=== PATIENT | female | born 1940 | race Caucasian/White ===

== ENCOUNTER 2024-05-14 11:36 | Inpatient (IN) | payer MEDICARE, OTHER ==
[2024-05-14] VITALS: BP 123/61; PULSE 67; RESP 16; TEMP 97.3; O2SAT 100
[~2024-05-14] VITALS: Ht 172.7 cm; Wt 93.9 kg
[2024-05-14 11:40] VITALS: TEMP 98
[2024-05-14 12:30] LABS: BASOPHILS % 0.4 % (0.0-1.0); EOSINOPHILS # (AUTO) 0.1 (0.0-0.4); HEMATOCRIT 49.8 % (34.2-44.1); HEMOGLOBIN 15.5 g/dL (12.0-16.0); LYMPHOCYTES # (AUTO) 1.1 (1.0-3.2); LYMPHOCYTES % 12.6 % (18.0-39.1); MEAN CORPUSCULAR HEMOGLOBIN 28.7 pg (28-32); MEAN CORPUSCULAR HGB CONC 31.1 g/dL (31-35); MEAN CORPUSCULAR VOLUME 92.1 fL (81-99); MONOCYTES # (AUTO) 0.9 (0.2-0.8); MONOCYTES % 10.6 % (4.4-11.3); NEUTROPHILS # (AUTO) 6.3 (2.1-6.9); PLATELET COUNT 145 x10e3/uL (140-360); RED BLOOD COUNT 5.41 x10e6/uL (3.6-5.1); RED CELL DISTRIBUTION WIDTH 13.5 % (11.7-14.4); WHITE BLOOD COUNT 8.32 x10e3/uL (4.8-10.8)
[2024-05-14 12:47] LABS: INR 2.07; PROTHROMBIN TIME 24.3 seconds (11.9-14.5)
[2024-05-14 12:48] LABS: PARTIAL THROMBOPLASTIN TIME 41.2 seconds (23.8-35.5)
[2024-05-14 12:57] LABS: ALBUMIN 4.1 g/dL (3.5-5.0); ALBUMIN/GLOBULIN RATIO 1.1 (0.8-2.0); ANION GAP 17.5 mmol/L (8-16); BILIRUBIN,TOTAL 0.9 mg/dL (0.2-1.2); CALCIUM 10.1 mg/dL (8.4-10.2); CREATININE, SERUM 1.49 mg/dL (0.57-1.11); MAGNESIUM 1.9 MG/DL (1.3-2.1); POTASSIUM 4.5 mmol/L (3.5-5.1); TOTAL PROTEIN 7.8 g/dL (6.5-8.1)
[2024-05-14 13:07] LABS: TROPONIN I 0.023 ng/mL (0-0.300)
[2024-05-14] MEDS ORDERED: Morphine 2mg Syringe 2 MG/ML SYR IV PRN (13:15)
[2024-05-14] MEDS: SODIUM CHLORIDE 0.9% 1000ML 1,000 ML IV ONE (14:00)
[2024-05-14] MEDS: ONDANSETRON HCL INJ 2MG/ML 2ML 2 MG/ML VIAL IV STA (14:01)
[2024-05-14] MEDS: Morphine 2mg Syringe 2 MG/ML SYR IV STA (14:02)
[2024-05-14] MEDS ORDERED: HYDRALAZINE HCL 20 MG/ML VIAL IV PRN (14:45)
[2024-05-14] MEDS ORDERED: ACETAMINOPHEN 325 MG TAB PO PRN (14:45)
[2024-05-14] MEDS ORDERED: GUAIFENESIN/DEXTROMETHORPHAN LIQD 5 ML UDC PO PRN (14:45)
[2024-05-14] MEDS ORDERED: MELATONIN 3 MG TAB PO PRN (14:45)
[2024-05-14] MEDS ORDERED: MAGNESIUM/ALUMINUM/SIMETHICONE 30 ML UDC PO PRN (14:45)
[2024-05-14] MEDS ORDERED: DEXTROSE 50% SYRINGE 50 ML IV PRN (14:45)
[2024-05-14] MEDS: Vancomycin IV 1 GM in SODIUM CHLORIDE 0.9% 250ML 250 ML IV ONE (16:26)
[2024-05-14] MEDS ORDERED: SODIUM CHLORIDE 0.9% 250ML 250 ML ONE (16:28)
[2024-05-14] MEDS ORDERED: Vancomycin IV 1 GM VIAL ONE (16:28)
[2024-05-14] MEDS: INSULIN REGULAR, HUMAN 100 UNIT/1 ML SQ SCH (16:30)
[2024-05-14] MEDS: ENOXAPARIN SOD INJ 40 MG/0.4 ML SYR SC SCH (16:31)
[2024-05-14 17:40] LABS: CLARITY,URINE CLEAR (CLEAR); COLOR,URINE YELLOW (YELLOW); LEUKOCYTE ESTERASE ,URINE NEGATIVE (NEGATIVE); NITRITE,URINE NEGATIVE (NEGATIVE); PH,URINE 5.5 (5 - 7); PROTEIN,URINE DIPSTICK NEGATIVE (NEGATIVE)
[2024-05-14 17:41] LABS: BILIRUBIN,URINE NEGATIVE (NEGATIVE); GLUCOSE, URINE 500 (NEGATIVE); KETONES,URINE NEGATIVE (NEGATIVE); URINE UROBILINOGEN 0.2 mg/dL (0.2 - 1)
[2024-05-14 18:07] LABS: BACTERIA,URINE FEW /HPF; EPITHELIAL CELLS,URINE FEW /LPF; RBC,URINE 0-5 /HPF (0-5); RENAL EPITHELIAL CELLS,URINE FEW
[2024-05-14 20:31] VITALS: PULSE 73; RESP 16
[2024-05-14 21:00] VITALS: BP 132/74; PULSE 86; RESP 16; TEMP 98.7; O2SAT 98
[2024-05-14] MEDS ORDERED: FUROSEMIDE20 MG PO (23:28)
[2024-05-14] MEDS ORDERED: NYSTATIN15 G2 TOP (23:28)
[2024-05-14] MEDS ORDERED: BISOPROLOL FUMAR5 MG PO (23:28)
[2024-05-14] MEDS ORDERED: ROSUVASTATIN CAL5 MG PO (23:28)
[2024-05-14] MEDS ORDERED: ISOSORBIDE MONO30 MG PO (23:28)
[2024-05-14] MEDS ORDERED: TIZANIDINE HCL2 MG PO (23:28)
[2024-05-14] MEDS ORDERED: NITROGLYCERIN0.4 MG SL (23:28)
[2024-05-14] MEDS ORDERED: MAGNESIUM OXID400 MG PO (23:28)
[2024-05-14] MEDS ORDERED: TRELEGY ELLIPT1 EAC1 INH (23:28)
[2024-05-14] MEDS ORDERED: LORATADINE10 MG PO (23:28)
[2024-05-14] MEDS ORDERED: ONDANSETRON2 MG/1 ML PO (23:28)
[2024-05-14] MEDS ORDERED: EZETIMIBE10 MG PO (23:28)
[2024-05-14] MEDS ORDERED: WARFARIN SODIUM5 MG PO (23:28)
[2024-05-14] MEDS ORDERED: CENTRUM ADULTS1 EACH PO (23:28)
[2024-05-14] MEDS ORDERED: OZEMPIC2 MG/0.75 SQ (23:28)
[2024-05-14] MEDS ORDERED: JARDIANCE10 MG PO (23:28)
[2024-05-14] MEDS ORDERED: ONDANSETRON HCL4 MG PO (23:33)
[2024-05-15] VITALS (9 sets, daily range): BP systolic 123–139; BP diastolic 61–78; PULSE 59–74; RESP 16–18; TEMP 97.3–98.4; O2SAT 96–100
[2024-05-15] MEDS: ONDANSETRON HCL INJ 2MG/ML 2ML 2 MG/ML VIAL IV PRN (03:08)
[2024-05-15] MEDS: Morphine 2mg Syringe 2 MG/ML SYR IV PRN (03:08)
[2024-05-15 05:30] LABS: BASOPHILS % 0.5 % (0.0-1.0); EOSINOPHILS # (AUTO) 0.1 (0.0-0.4); EOSINOPHILS % 1.8 % (0.0-6.0); HEMATOCRIT 44.2 % (34.2-44.1); HEMOGLOBIN 13.4 g/dL (12.0-16.0); LYMPHOCYTES # (AUTO) 1.5 (1.0-3.2); LYMPHOCYTES % 23.1 % (18.0-39.1); MEAN CORPUSCULAR HEMOGLOBIN 28.9 pg (28-32); MEAN CORPUSCULAR HGB CONC 30.3 g/dL (31-35); MEAN CORPUSCULAR VOLUME 95.5 fL (81-99); MONOCYTES # (AUTO) 0.8 (0.2-0.8); MONOCYTES % 12.5 % (4.4-11.3); NEUTROPHILS # (AUTO) 4.1 (2.1-6.9); NEUTROPHILS % 61.8 % (38.7-80.0); PLATELET COUNT 102 x10e3/uL (140-360); RED BLOOD COUNT 4.63 x10e6/uL (3.6-5.1); RED CELL DISTRIBUTION WIDTH 13.5 % (11.7-14.4); WHITE BLOOD COUNT 6.55 x10e3/uL (4.8-10.8)
[2024-05-15 05:53] LABS: ALBUMIN 3.2 g/dL (3.5-5.0); ALBUMIN/GLOBULIN RATIO 1.1 (0.8-2.0); ANION GAP 13.2 mmol/L (8-16); BILIRUBIN,TOTAL 0.6 mg/dL (0.2-1.2); CALCIUM 8.8 mg/dL (8.4-10.2); CREATININE, SERUM 1.47 mg/dL (0.57-1.11); POTASSIUM 4.2 mmol/L (3.5-5.1); TOTAL PROTEIN 6.2 g/dL (6.5-8.1)
[2024-05-15] MEDS: MULTIVITAMINS/MINERALS TAB PO SCH (09:32)
[2024-05-15] MEDS: SODIUM CHLORIDE 0.9% 1000ML 1,000 ML ONE (09:32)
[2024-05-15] MEDS: POLYETHYLENE GLYCOL 3350 17 GM PACK PO PRN (11:47)
[2024-05-15] MEDS: HYDROCODONE/APAP 5MG-325MG TAB PO PRN (13:46)
[2024-05-15] MEDS: Vancomycin IV 1 GM in SODIUM CHLORIDE 0.9% 250ML 250 ML IV SCH (17:08)
[2024-05-15] MEDS ORDERED: EZETIMIBE 10 MG TAB PO ONE (21:15)
[2024-05-15] MEDS: ISOSORBIDE MONONITRATE 30 MG TAB CR PO ONE (21:47)
[2024-05-15] MEDS: BISOPROLOL FUMARATE 10 MG TAB PO ONE (21:48)
[2024-05-15] MEDS: WARFARIN SOD 5 MG TAB PO ONE (21:49)
[2024-05-16] VITALS (7 sets, daily range): BP systolic 124–146; BP diastolic 59–73; PULSE 60–67; RESP 16–19; TEMP 97.3–98.4; O2SAT 97–100
[2024-05-16 06:10] LABS: INR 1.49; PROTHROMBIN TIME 18.8 seconds (11.9-14.5)
[2024-05-16 06:16] LABS: ALBUMIN 2.9 g/dL (3.5-5.0); ANION GAP 11.2 mmol/L (8-16); BILIRUBIN,TOTAL 0.6 mg/dL (0.2-1.2); CALCIUM 8.6 mg/dL (8.4-10.2); CREATININE, SERUM 1.25 mg/dL (0.57-1.11); POTASSIUM 4.2 mmol/L (3.5-5.1); TOTAL PROTEIN 5.7 g/dL (6.5-8.1)
[2024-05-16] MEDS: LORATADINE 10 MG TAB PO SCH (09:00)
[2024-05-16] MEDS: ISOSORBIDE MONONITRATE 30 MG TAB CR PO SCH ×2 (09:00→21:57)
[2024-05-16] MEDS: CRESTOR 10MG PO SCH (10:14)
[2024-05-16] MEDS: FUROSEMIDE 20 MG TAB PO SCH (10:15)
[2024-05-16] MEDS: MAGNESIUM OXIDE 400 MG TAB PO SCH (10:15)
[2024-05-16] MEDS: BISOPROLOL FUMARATE 10 MG TAB PO SCH (10:17)
[2024-05-16] MEDS: EZETIMIBE 10 MG TAB PO SCH (10:19)
[2024-05-16] MEDS ORDERED: LORATADINE 10 MG TAB PO PRN (13:00)
[2024-05-16] MEDS: DOCUSATE SODIUM 100 MG CAP PO SCH (14:30)
[2024-05-16] MEDS: WARFARIN SOD 5 MG TAB PO SCH (17:11)
[2024-05-17] VITALS (8 sets, daily range): BP systolic 111–125; BP diastolic 50–72; PULSE 60–67; RESP 16–18; TEMP 97.5–98.4; O2SAT 97–100
[2024-05-17 07:39] LABS: HEMATOCRIT 42.4 % (34.2-44.1); HEMOGLOBIN 12.9 g/dL (12.0-16.0); MEAN CORPUSCULAR HEMOGLOBIN 28.7 pg (28-32); MEAN CORPUSCULAR HGB CONC 30.4 g/dL (31-35); MEAN CORPUSCULAR VOLUME 94.4 fL (81-99); PLATELET COUNT 142 x10e3/uL (140-360); RED BLOOD COUNT 4.49 x10e6/uL (3.6-5.1); WHITE BLOOD COUNT 5.98 x10e3/uL (4.8-10.8)
[2024-05-17] MEDS: SODIUM CHLORIDE 0.9% 500ML 500 ML ONE (08:05)
[2024-05-17 08:06] LABS: ALBUMIN 3.2 g/dL (3.5-5.0); ANION GAP 11.9 mmol/L (8-16); BILIRUBIN,TOTAL 0.5 mg/dL (0.2-1.2); CALCIUM 9.1 mg/dL (8.4-10.2); CREATININE, SERUM 1.38 mg/dL (0.57-1.11); POTASSIUM 4.9 mmol/L (3.5-5.1); TOTAL PROTEIN 6.3 g/dL (6.5-8.1)
[2024-05-17 08:41] LABS: INR 1.55; PROTHROMBIN TIME 19.3 seconds (11.9-14.5)
[2024-05-17 11:27] LABS: EOSINOPHILS % (MANUAL) 5 % (0-7); LYMPHOCYTES % (MANUAL) 24 % (19-48); MONOCYTES % (MANUAL) 8 % (3.4-9.0); NEUTROPHILS % (MANUAL) 63 % (40-74)
[2024-05-17 11:28] LABS: PLATELET ESTIMATE ADEQUATE; PLATELET MORPHOLOGY COMMENT NORMAL
[2024-05-17 11:29] LABS: RBC MORPHOLOGY COMMENT NORMAL
[2024-05-17] MEDS: MAGNESIUM HYDROXIDE 30 ML UDC PO PRN (13:04)
[2024-05-18] VITALS: BP 115/66; PULSE 66; RESP 18; TEMP 97.6; O2SAT 97
[2024-05-18 04:00] VITALS: BP 109/58; PULSE 61; RESP 18; TEMP 97.9; O2SAT 98
[2024-05-18 08:18] VITALS: BP 115/75; PULSE 73; RESP 18; TEMP 97.7; O2SAT 99
[2024-05-18 09:00] VITALS: BP 118/65; PULSE 61; RESP 18; TEMP 97.7; O2SAT 98
[2024-05-18 09:18] LABS: INR 1.63; PROTHROMBIN TIME 20.1 seconds (11.9-14.5)
[2024-05-18 11:41] VITALS: BP 113/75; PULSE 65; RESP 18; TEMP 97.7; O2SAT 97
[2024-05-18] MEDS ORDERED: CIPRO500 MG/5 M PO (16:40)
[2024-05-18] MEDS ORDERED: DOXYCYCLINE HY100 MG PO (16:40)
[2024-05-18] MEDS: WARFARIN SOD 1 MG TAB PO ONE (17:37)
[2024-05-18 20:00] VITALS: BP 141/71; PULSE 65; RESP 20; TEMP 97.7; O2SAT 100
[2024-05-19] VITALS: BP 124/64; PULSE 63; RESP 20; TEMP 98.6; O2SAT 98
[2024-05-19 04:00] VITALS: BP 133/71; PULSE 73; RESP 20; TEMP 97.7; O2SAT 100
[2024-05-19 05:58] LABS: INR 1.8; PROTHROMBIN TIME 21.8 seconds (11.9-14.5)
[2024-05-19 09:00] VITALS: BP 121/74; PULSE 74; RESP 16; TEMP 97.4; O2SAT 100
[2024-05-19 09:45] VITALS: BP 121/74; PULSE 74; RESP 16; TEMP 97.4; O2SAT 100
[2024-05-19 11:48] VITALS: BP 116/84; PULSE 62; RESP 18; TEMP 98.1; O2SAT 100
[2024-05-19 16:50] VITALS: BP 120/64; PULSE 64; RESP 16; TEMP 97.5; O2SAT 100
== END 2024-05-19 19:00 | disposition home or self-care (01) | DRG 603 ==
LOC: ER 11:46 → ERHOLD 13:06 → MED/SURG3 20:49
PROVIDERS: ADMIT Internal Medicine Critical Care Medicine; ATTEND Internal Medicine Critical Care Medicine
DX: L03.115 Cellulitis of right lower limb (principal); L97.218 Non-pressure chronic ulcer of right calf with other specified severity; E11.622 Type 2 diabetes mellitus with other skin ulcer; D69.6 Thrombocytopenia, unspecified; E11.22 Type 2 diabetes mellitus with diabetic chronic kidney disease; D47.2 Monoclonal gammopathy; B95.61 Methicillin susceptible Staphylococcus aureus infection as the cause of diseases classified elsewhere; B95.5 Unspecified streptococcus as the cause of diseases classified elsewhere; I12.9 Hypertensive chronic kidney disease with stage 1 through stage 4 chronic kidney disease, or unspecified chronic kidney disease; N18.30 Chronic kidney disease, stage 3 unspecified; I99.8 Other disorder of circulatory system; I48.91 Unspecified atrial fibrillation; E78.5 Hyperlipidemia, unspecified; K59.00 Constipation, unspecified; Z90.49 Acquired absence of other specified parts of digestive tract; Z90.710 Acquired absence of both cervix and uterus; Z95.810 Presence of automatic (implantable) cardiac defibrillator; Z79.01 Long term (current) use of anticoagulants; Z87.891 Personal history of nicotine dependence; Z88.1 Allergy status to other antibiotic agents
CPT/HCPCS: 36415; 71045; 80053; 80202; 81001; 82550; 82948; 83036; 83735; 84484; 85007; 85025; 85027; 85610; 85730; 87040; 87071; 87086; 87186; 87205; 93005; 93970; 99252; 99284; J0692; J1650; J2270; J2405; J2470; J7030; J7040; J7050